=== PATIENT | male | born 1955 | race Caucasian/White ===

== ENCOUNTER 2018-03-16 07:56 | Inpatient (IN) | payer OTHER ==
[~2018-03-16] VITALS: Ht 182.9 cm; Wt 120.5 kg
[2018-03-16 08:28] LABS: BASOPHILS # (AUTO) 0.02 x10^3/uL (0-0.1); BASOPHILS % (AUTO) 0 % (0-1); EOSINOPHILS # (AUTO) 0.12 x10^3/uL (0-0.4); EOSINOPHILS % (AUTO) 2 % (1-7); LYMPHOCYTES # (AUTO) 1.29 x10^3/uL (1-3.4); LYMPHOCYTES % (AUTO) 23 % (22-44); MD NO; MEAN CORPUSCULAR HEMOGLOBIN 30.6 pg (27.5-34.5); MEAN CORPUSCULAR HGB CONC 34.6 g/dL (33.2-36.2); MEAN CORPUSCULAR VOLUME 88.5 fL (81-97); MEAN PLATELET VOLUME 6.8 fL (7.4-10.4); MONOCYTES # (AUTO) 0.26 x10^3/uL (0.2-0.8); MONOCYTES % (AUTO) 5 % (2-9); NEUTROPHILS # (AUTO) 4.04 x10^3/uL (1.8-6.8); NEUTROPHILS % (AUTO) 71 % (42-75); PLATELET COUNT 216 x10^3/uL (130-400); RED BLOOD COUNT 4.98 x10^6/uL (4.38-5.82); RED CELL DISTRIBUTION WIDTH 13.6 % (9.4-14.8)
[2018-03-16] MEDS ORDERED: SODIUM CHLORIDE FLUSH 10ML SYR IVF ONE (08:30)
[2018-03-16] MEDS ORDERED: PLEASE ENTER ALLERGIES MC SCH (08:30)
[2018-03-16] MEDS ORDERED: PLEASE ENTER HEIGHT AND WEIGHT MC SCH (08:30)
[2018-03-16 08:38] LABS: ANION GAP 5 mmol/L (5-15); CALCIUM 8.2 mg/dL (8.5-10.1); CHLORIDE 113 mmol/L (98-107); CREATININE 1.04 mg/dL (0.7-1.3)
[2018-03-16 08:39] LABS: ALBUMIN 3.7 g/dL (3.4-5.0)
[2018-03-16 08:42] LABS: TROPONIN I < 0.015 ng/mL (0.000-0.045)
[2018-03-16] MEDS ORDERED: ASPIRIN 325 MG TABLET PO STA (08:43)
[2018-03-16] MEDS ORDERED: ASPIRIN 325 MG TABLET ONE (08:46)
[2018-03-16] MEDS ORDERED: MONT10TA9 PO (10:45)
[2018-03-16] MEDS ORDERED: OXYM15MI4 NS (10:45)
[2018-03-16] MEDS ORDERED: OMNIPAQUE 350 MG/ML, 100ML BOTTLE ONE (10:56)
[2018-03-16 12:05] VITALS: BP 160/83
[2018-03-16] MEDS ORDERED: ACETAMINOPHEN 650 MG/20.3 ML UDC PO PRN (12:30)
[2018-03-16] MEDS ORDERED: ONDANSETRON 2MG/ML, 2ML IVPush PRN (12:30)
[2018-03-16] MEDS ORDERED: OXYMETAZOLINE NASAL SPRAY 0.05%, 15ML NAS PRN (12:30)
[2018-03-16] MEDS ORDERED: POLYETHYLENE GLYCOL 17 GM PACKET PO PRN (12:30)
[2018-03-16] MEDS: SODIUM CHLORIDE 0.45% 1,000 ML IV SCH (13:19)
[2018-03-16] MEDS: ENOXAPARIN 40 MG/0.4 ML SQ SCH (13:19)
[2018-03-16] MEDS: MONTELUKAST 10 MG TABLET PO SCH (13:19)
[2018-03-16] MEDS: OXYMETAZOLINE NASAL SPRAY 0.05%, 15ML NAS PRN ×2 (17:52→21:31)
[2018-03-16] MEDS: LISINOPRIL 20 MG TABLET PO SCH (20:27)
[2018-03-16 20:40] VITALS: BP 161/82
[2018-03-16] MEDS ORDERED: ATORVASTATIN 40 MG TABLET PO SCH (21:00)
[2018-03-17 01:52] VITALS: BP 132/64
[2018-03-17] MEDS: SODIUM CHLORIDE 0.45% 1,000 ML IV SCH (02:03)
[2018-03-17 05:20] LABS: C-REACTIVE PROTEIN, QUANT 0.02 mg/dL (0.02-0.49)
[2018-03-17 05:22] LABS: CHOL/HDL RATIO 6.3; LDL/HDL RATIO 3.8 (0.5-3.0)
[2018-03-17 05:39] LABS: HEMOGLOBIN A1C 5.4 % (4.2-6.3)
[2018-03-17 07:32] VITALS: BP 154/83
[2018-03-17] MEDS: OXYMETAZOLINE NASAL SPRAY 0.05%, 15ML NAS PRN (08:26)
[2018-03-17] MEDS: LISINOPRIL 20 MG TABLET PO SCH (08:26)
[2018-03-17] MEDS: MONTELUKAST 10 MG TABLET PO SCH (08:26)
[2018-03-17] MEDS ORDERED: ATOR40TA78 PO (08:39)
[2018-03-17] MEDS ORDERED: LISI-170 PO (08:39)
[2018-03-17] MEDS ORDERED: ASPI-515 PO/NG (08:39)
[2018-03-17] MEDS ORDERED: ASPIRIN 81 MG TABLET CHEW PO/NG SCH (09:00)
[2018-03-17] MEDS: ENOXAPARIN 40 MG/0.4 ML SQ SCH (13:25)
== END 2018-03-17 15:21 | disposition home or self-care (01) | DRG 65 ==
LOC: ED 09:49 → EDIP 11:13 → SUATTDRO 11:36 → 4WST 11:51
PROVIDERS: ADMIT Hospitalist; ATTEND Hospitalist
DX: I63.9 Cerebral infarction, unspecified (principal); G81.91 Hemiplegia, unspecified affecting right dominant side; I10 Essential (primary) hypertension; E66.9 Obesity, unspecified; J30.2 Other seasonal allergic rhinitis; Z68.36 Body mass index [BMI] 36.0-36.9, adult; Z79.82 Long term (current) use of aspirin
CPT/HCPCS: 36415; 70450; 70496; 70498; 71045; 80048; 80061; 82040; 83036; 84484; 85025; 86140; 93005; 93306; 99285; J1650; Q9967; 92523-GN

== ENCOUNTER → 2018-03-30 | Outpatient (CLI) | payer OTHER ==
[~2018-03-30] MED LIST: ASPI-515 PO/NG; ATOR40TA78 PO; LISI-170 PO; MONT10TA9 PO; OXYM15MI4 NS
== END | disposition home or self-care (01) ==
LOC: CFH 06:52
PROVIDERS: ATTEND Hospitalist
DX: G81.01 Flaccid hemiplegia affecting right dominant side (principal); R47.81 Slurred speech
CPT/HCPCS: 70551

== ENCOUNTER 2018-10-29 08:26 | Inpatient (IN) | payer OTHER ==
[~2018-10-29] VITALS: Ht 182.9 cm; Wt 130.7 kg
--- NOTE | 2018-10-29 08:54 | NUR ---
LEFT /LEG FOOT ELEVATED AND ICE PLACED ON SWELLING AT [facility]
[2018-10-29] MEDS ORDERED: MONT10TA9 PO (08:56)
--- NOTE | 2018-10-29 09:21 | NUR ---
PATIENT TO X-RAY
--- NOTE | 2018-10-29 09:47 | NUR ---
BLOOD DRAWN AND X-RAY DONE
--- NOTE | 2018-10-29 09:49 | NUR ---
Report from SUSANNE Zavaleta.
[2018-10-29] MEDS ORDERED: SODIUM CHLORIDE FLUSH 10ML SYR IVF ONE (10:00)
--- NOTE | 2018-10-29 10:09 | NUR ---
IV started. VSS. Jay (ortho) to see patient in ED.
[2018-10-29 10:10] LABS: BASOPHILS # (AUTO) 0.03 x10^3/uL (0-0.1); BASOPHILS % (AUTO) 0 % (0-1); EOSINOPHILS # (AUTO) 0.03 x10^3/uL (0-0.4); EOSINOPHILS % (AUTO) 0 % (1-7); LYMPHOCYTES # (AUTO) 1.29 x10^3/uL (1-3.4); LYMPHOCYTES % (AUTO) 10 % (22-44); MD NO; MEAN CORPUSCULAR HEMOGLOBIN 30.6 pg (27.5-34.5); MEAN CORPUSCULAR HGB CONC 33.7 g/dL (33.2-36.2); MEAN CORPUSCULAR VOLUME 90.8 fL (81-97); MEAN PLATELET VOLUME 7.2 fL (7.4-10.4); MONOCYTES # (AUTO) 0.33 x10^3/uL (0.2-0.8); MONOCYTES % (AUTO) 3 % (2-9); NEUTROPHILS # (AUTO) 10.65 x10^3/uL (1.8-6.8); NEUTROPHILS % (AUTO) 86 % (42-75); PLATELET COUNT 215 x10^3/uL (130-400); RED BLOOD COUNT 5.05 x10^6/uL (4.38-5.82); RED CELL DISTRIBUTION WIDTH 13.7 % (9.4-14.8)
[2018-10-29 10:20] LABS: ALANINE AMINOTRANSFERASE 85 U/L (12-78); ALBUMIN 3.9 g/dL (3.4-5.0); ANION GAP 5 mmol/L (5-15); CALCIUM 9.4 mg/dL (8.5-10.1); CHLORIDE 107 mmol/L (98-107); CREATININE 1.17 mg/dL (0.7-1.3)
[2018-10-29 10:23] LABS: ALKALINE PHOSPHATASE 62 U/L (45-117); BILIRUBIN,TOTAL 0.5 mg/dL (0.2-1.0); TOTAL PROTEIN 6.9 g/dL (6.4-8.2)
[2018-10-29] MEDS ORDERED: ONDANSETRON 2MG/ML, 2ML IVPush PRN (11:00)
[2018-10-29] MEDS ORDERED: SODIUM CHLORIDE FLUSH 10ML SYR IVF PRN (11:00)
[2018-10-29] MEDS ORDERED: MORPHINE SULFATE 4 MG/ML, 1ML IVPush PRN (11:00)
[2018-10-29] MEDS ORDERED: NS + 20MEQ KCL 1,000 ML IV SCH (11:16)
[2018-10-29 11:26] VITALS: BP 128/81
[2018-10-29] MEDS ORDERED: GABAPENTIN 300 MG CAPSULE PO PRN (11:30)
[2018-10-29] MEDS ORDERED: ACETAMINOPHEN 325 MG TABLET PO PRN ×2 (11:30→19:00)
[2018-10-29] MEDS ORDERED: DOCUSATE 100 MG CAPSULE PO PRN (11:30)
[2018-10-29] MEDS ORDERED: morphine SULFATE 10 MG/ML, 1ML IVPush PRN (11:30)
[2018-10-29] MEDS ORDERED: BISACODYL 10 MG SUPP PR PRN ×2 (11:30→19:00)
[2018-10-29] MEDS ORDERED: hydrALAzine 20 MG/ML, 1ML IVPush PRN (11:30)
[2018-10-29] MEDS ORDERED: POLYETHYLENE GLYCOL 17 GM PACKET PO PRN (11:30)
[2018-10-29] MEDS ORDERED: ENALAPRILAT 1.25 MG/ML, 2ML IVPush PRN (11:30)
[2018-10-29 11:52] LABS: INTERNATIONAL NORMALIZED RATIO 1.05 (0.93-1.1); PROTHROMBIN TIME 11.1 Seconds (9.6-11.5)
[2018-10-29 12:08] VITALS: BP 128/81
[2018-10-29 12:08] LABS: TROPONIN I < 0.015 ng/mL (0.000-0.045)
[2018-10-29] MEDS: SODIUM CHLORIDE 0.9% 1,000 ML IV SCH (12:17)
[2018-10-29 12:27] VITALS: BP 126/68
[2018-10-29] MEDS ORDERED: NEOSPORIN OINT, 15GM ONE (13:56)
[2018-10-29] MEDS ORDERED: ROPIvacaine/PF 0.2%, 20 ML ONE (13:56)
[2018-10-29] MEDS ORDERED: MIDAZOLAM 1 MG/ML, 2ML ONE (14:11)
[2018-10-29] MEDS ORDERED: FENTANYL PF 250 MCG/5ML ONE (14:11)
[2018-10-29] MEDS ORDERED: CEFAZOLIN 1,000 MG ONE (16:16)
[2018-10-29] MEDS ORDERED: NEOSTIGMINE 1 MG/ML, 10ML ONE (16:16)
[2018-10-29] MEDS ORDERED: DEXAMETHASONE 4 MG/ML, 1ML ONE (16:16)
[2018-10-29] MEDS ORDERED: GLYCOPYRROLATE 0.2MG/1ML, 5ML ONE (16:16)
[2018-10-29] MEDS ORDERED: PROPOFOL 10 MG/ML, 20ML ONE (16:16)
[2018-10-29] MEDS ORDERED: ONDANSETRON 2MG/ML, 2ML ONE (16:16)
[2018-10-29] MEDS ORDERED: ROCURONIUM 10MG/ML,5ML ONE (16:16)
[2018-10-29] MEDS ORDERED: SUCCINYLCHOLINE 20 MG/ML, 10ML ONE (16:16)
[2018-10-29] MEDS ORDERED: MORPHINE SULFATE 4 MG/ML, 1ML ONE (16:17)
[2018-10-29] MEDS ORDERED: FENTANYL PF 100 MCG/2ML ONE (16:26)
[2018-10-29] MEDS ORDERED: MEPERIDINE/PF 25MG/ML,1ML ONE (16:47)
[2018-10-29] MEDS ORDERED: OXYcodone 5 MG/5 ML ORAL.SOL UDC ONE (16:55)
[2018-10-29] MEDS ORDERED: ACETAMINOPHEN 650 MG/20.3 ML UDC ONE (16:55)
[2018-10-29] MEDS ORDERED: HYDROmorphone 2 MG/ML, 1ML IVPush PRN (17:00)
[2018-10-29] MEDS ORDERED: OXYcodone 5 MG/5 ML ORAL.SOL UDC PO PRN ×2 (17:00→19:00)
[2018-10-29] MEDS ORDERED: ONDANSETRON 2MG/ML, 2ML IV PRN ×2 (17:00→19:00)
[2018-10-29] MEDS ORDERED: MEPERIDINE/PF 25MG/0.5ML IVPush PRN ×2 (17:00)
[2018-10-29] MEDS ORDERED: FENTANYL PF 100 MCG/2ML IV PRN (17:00)
[2018-10-29] MEDS ORDERED: MIDAZOLAM 1 MG/ML, 2ML IV PRN (17:00)
[2018-10-29] MEDS ORDERED: PROMETHAZINE 25 MG/ML, 1ML IV PRN (17:00)
[2018-10-29] MEDS ORDERED: hydrALAzine 20 MG/ML, 1ML IV PRN (17:00)
[2018-10-29] MEDS ORDERED: ALBUTEROL/IPRATROPIUM 2.5MG/0.5MG, 3 ML NPPB PRN (17:00)
[2018-10-29] MEDS ORDERED: morphine SULFATE 10 MG/ML, 1ML IV PRN (19:00)
[2018-10-29] MEDS ORDERED: POTASSIUM CHLORIDE 10 MEQ in D5%-0.45% NACL 1,000 ML IV SCH (19:00)
[2018-10-29] MEDS ORDERED: MAGNESIUM HYDROXIDE 8%, 30ML UDC PO PRN (19:00)
[2018-10-29] MEDS ORDERED: SENNA/DOCUSATE TABLET PO PRN (19:00)
[2018-10-29] MEDS ORDERED: ALUMINUM/MAG/SIMETHICONE 30 ML UDC PO PRN (19:00)
[2018-10-29 19:44] VITALS: BP 137/78
[2018-10-29] MEDS: HYDROcodone/APAP 5/325 TABLET PO PRN ×2 (20:19→21:15)
[2018-10-29] MEDS: LISINOPRIL 20 MG TABLET PO SCH (20:19)
[2018-10-29] MEDS: KETOROLAC 30 MG/1 ML IM SCH (20:24)
[2018-10-29] MEDS: DOCUSATE 100 MG CAPSULE PO SCH (21:00)
[2018-10-29] MEDS ORDERED: ATORVASTATIN 40 MG TABLET PO SCH (21:00)
[2018-10-29] MEDS: BACLOFEN 10 MG TABLET PO PRN (21:34)
[2018-10-30 00:15] VITALS: BP 98/54
[2018-10-30] MEDS: CEFAZOLIN PMX 1GM/50ML 50 ML IVPB SCH ×2 (00:15→08:13)
[2018-10-30] MEDS: SODIUM CHLORIDE 0.9% 1,000 ML IV SCH (00:18)
[2018-10-30] MEDS: HYDROcodone/APAP 5/325 TABLET PO PRN ×3 (01:21→09:58)
[2018-10-30 04:23] VITALS: BP 104/55
[2018-10-30] MEDS: KETOROLAC 30 MG/1 ML IM SCH (04:36)
[2018-10-30] MEDS: BACLOFEN 10 MG TABLET PO PRN (05:32)
[2018-10-30 06:00] LABS: ANION GAP 5 mmol/L (5-15); CALCIUM 8.4 mg/dL (8.5-10.1); CHLORIDE 106 mmol/L (98-107); CREATININE 1.18 mg/dL (0.7-1.3)
[2018-10-30 06:08] LABS: BASOPHILS # (AUTO) 0.03 x10^3/uL (0-0.1); BASOPHILS % (AUTO) 0 % (0-1); EOSINOPHILS # (AUTO) 0.01 x10^3/uL (0-0.4); EOSINOPHILS % (AUTO) 0 % (1-7); LYMPHOCYTES # (AUTO) 1.41 x10^3/uL (1-3.4); LYMPHOCYTES % (AUTO) 12 % (22-44); MD NO; MEAN CORPUSCULAR HEMOGLOBIN 31.5 pg (27.5-34.5); MEAN CORPUSCULAR HGB CONC 34.5 g/dL (33.2-36.2); MEAN CORPUSCULAR VOLUME 91.3 fL (81-97); MEAN PLATELET VOLUME 7.3 fL (7.4-10.4); MONOCYTES # (AUTO) 0.81 x10^3/uL (0.2-0.8); MONOCYTES % (AUTO) 7 % (2-9); NEUTROPHILS # (AUTO) 9.46 x10^3/uL (1.8-6.8); NEUTROPHILS % (AUTO) 81 % (42-75); PLATELET COUNT 211 x10^3/uL (130-400); RED BLOOD COUNT 4.34 x10^6/uL (4.38-5.82); RED CELL DISTRIBUTION WIDTH 13.3 % (9.4-14.8)
[2018-10-30 07:30] VITALS: BP 111/61
[2018-10-30] MEDS: LISINOPRIL 20 MG TABLET PO SCH (08:14)
[2018-10-30] MEDS: DOCUSATE 100 MG CAPSULE PO SCH (08:14)
[2018-10-30] MEDS ORDERED: MULTIVITAMINS/MINERALS TABLET PO SCH (09:00)
[2018-10-30] MEDS ORDERED: CALCIUM CARBONATE 500 MG TABLET PO SCH (09:00)
[2018-10-30] MEDS ORDERED: MONTELUKAST 10 MG TABLET PO SCH (09:00)
[2018-10-30] MEDS ORDERED: ASPI81TA45 PO (10:13)
[2018-10-30] MEDS ORDERED: OXYC-307 PO (10:14)
[2018-10-30] MEDS ORDERED: IBUP200T49 PO (10:14)
== END 2018-10-30 13:25 | disposition home or self-care (01) | DRG 494 ==
LOC: ED 09:58 → EDIP 10:31 → 4NOR 11:16 → DCLOUNGE 10-30 13:00
PROVIDERS: ADMIT Hospitalist; ATTEND Hospitalist
PROC: 0QSH04Z Reposition Left Tibia with Internal Fixation Device, Open Approach (ICD-10-PCS; principal; 2018-10-29 15:00)
DX: S82.252A Displaced comminuted fracture of shaft of left tibia, initial encounter for closed fracture (principal); D72.829 Elevated white blood cell count, unspecified; I10 Essential (primary) hypertension; I35.0 Nonrheumatic aortic (valve) stenosis; G43.109 Migraine with aura, not intractable, without status migrainosus; R74.8 Abnormal levels of other serum enzymes; W00.0XXA Fall on same level due to ice and snow, initial encounter; I48.91 Unspecified atrial fibrillation; J45.909 Unspecified asthma, uncomplicated; S82.452A Displaced comminuted fracture of shaft of left fibula, initial encounter for closed fracture; Z80.8 Family history of malignant neoplasm of other organs or systems; Z90.49 Acquired absence of other specified parts of digestive tract; Z82.49 Family history of ischemic heart disease and other diseases of the circulatory system; Y93.89 Activity, other specified; Y92.488 Other paved roadways as the place of occurrence of the external cause; Y99.0 Civilian activity done for income or pay
CPT/HCPCS: 36415; 73590; 73600; 73610; 73630; 76000; J3490; 71045; 80048; 80053; 84484; 85025; 85610; 85730; 93005; C1713; G0378; J0690; J1100; J1885; J2175; J2250; J2405; J2704; J2710; J2795; J3010; J3480; J0330; J7030